=== PATIENT | female | born 1955 | race Caucasian/White ===

== ENCOUNTER 2018-04-06 10:52 | Emergency (ER) | payer OTHER ==
[~2018-04-06] VITALS: Ht 170.2 cm; Wt 56.7 kg
[2018-04-06 12:25] LABS: Albumin 2.9 g/dL (3.4-5.0); Calcium 8.8 mg/dL (8.5-10.1); Potassium 4.1 mmol/L (3.5-5.1)
[2018-04-06 12:30] LABS: Bilirubin, Total 0.6 mg/dL (0.2-1.0); Total Protein 6.6 g/dL (6.4-8.2)
[2018-04-06 13:06] LABS: Basophils # (auto) 0.1 uL; Basophils % (auto) 0.5 % (0.0-2.0); Eosinophils # (auto) 0.1 uL; Eosinophils % (auto) 0.6 % (0.0-7.0); Hematocrit 36.5 % (36.0-46.0); Lymphocytes # (auto) 2.2 uL; Lymphocytes % (auto) 13.9 % (10.0-50.0); Mean Corpuscular Hemoglobin 30.3 pg (28.0-32.0); Mean Corpuscular Hgb Conc. 32.8 g/dL (32.0-36.0); Mean Corpuscular Volume 92.5 fL (80.0-100.0); Monocytes # (auto) 1.9 uL; Monocytes % (auto) 11.9 % (0.0-12.0); Neutrophils # (auto) 11.5 uL; Neutrophils % (auto) 73.1 % (37.0-80.0); Platelet Count (auto) 277 10^3/uL (140-450); Red Blood Cells 3.95 10^6/uL (4.0-5.20); Red Cell Distribution Width 13.4 % (11.8-14.3); White Blood Cell 15.8 10^3/uL (4.4-10.8)
[2018-04-06] MEDS ORDERED: VANCOMYCIN 1GM/250ML 250 ML IV ONE (15:00)
[2018-04-06 17:05] LABS: Urine Bacteria NONE SEEN /hpf (None Seen); Urine Blood Negative /uL (Negative); Urine Specific Gravity 1.028 (1.001-1.035); Urine WBC 1 /hpf (0 - 5)
[2018-04-06 20:30] VITALS: BP 127/72
== END 2018-04-06 20:52 | disposition home or self-care (01) ==
LOC: ER 10:52 → EDBD 10:52 → ER 20:52
DX: L03.317 Cellulitis of buttock (principal); Z88.0 Allergy status to penicillin; Z91.040 Latex allergy status; Z91.09 Other allergy status, other than to drugs and biological substances
CPT/HCPCS: 36415; 51702; 71045; 72192; 80053; 81001; 83605; 85025; 87040; 87076; 87086; 96365; 96366; 99284; J3370

== ENCOUNTER 2020-10-20 14:27 | Inpatient (IN) | payer MEDICARE ==
[~2020-10-20] VITALS: Ht 167.6 cm; Wt 78.8 kg
[2020-10-20] MEDS: SODIUM CHLORIDE 0.9% 1,000 ML IV SCH (07:45)
[2020-10-20] MEDS ORDERED: SODIUM CHLORIDE 0.9% 1,000 ML IV ONE ×2 (15:15→18:45)
[2020-10-20 15:40] LABS: Basophils # (auto) 0 10 ^3/uL (0-0.2); Basophils % (auto) 0.2 % (0.0-2.0); Eosinophils # (auto) 0 10 ^3/uL (0-0.8); Hematocrit 38.2 % (36.0-46.0); Hemoglobin 12.6 g/dL (12.2-16.2); Lymphocytes % (auto) 8.3 % (10.0-50.0); Mean Corpuscular Hemoglobin 27.9 pg (28.0-32.0); Mean Corpuscular Hgb Conc. 32.9 g/dL (32.0-36.0); Mean Corpuscular Volume 84.7 fL (80.0-100.0); Monocytes % (auto) 8.5 % (0.0-12.0); Neutrophils # (auto) 19.6 10 ^3/uL (1.6-8.6); Red Blood Cells 4.51 10^6/uL (4.0-5.20); Red Cell Distribution Width 13.6 % (11.8-14.3); White Blood Cell 23.6 10^3/uL (4.4-10.8)
[2020-10-20] MEDS ORDERED: cefTRIAXone 1GM/50ML D5W 50 ML IV ONE (16:00)
[2020-10-20 16:12] LABS: Albumin 2.4 g/dL (3.4-5.0); Anion Gap 6 (5-15); Blood Urea Nitrogen 60 mg/dL (7-18); Calcium 10.1 mg/dL (8.5-10.1); Carbon Dioxide 29 mmol/L (21-32); Chloride 101 mmol/L (98-107); Glucose 126 mg/dL (74-106); Potassium 5.2 mmol/L (3.5-5.1); Sodium 136 mmol/L (136-145)
[2020-10-20 16:17] LABS: Alanine Aminotransferase 19 U/L (13-56); Alkaline Phosphatase 98 U/L (45-117); Aspartate Aminotransferase 28 U/L (15-37); BUN/Creatinine Ratio 36.6; Bilirubin, Total 0.3 mg/dL (0.2-1.0); GFR African American 41 mL/min; GFR Non-African American 34 mL/min; Total Protein 7.2 g/dL (6.4-8.2)
[2020-10-20] MEDS ORDERED: CLINDAMYCIN 600MG IV 50 ML IV ONE (18:00)
[2020-10-20] MEDS ORDERED: MORPHINE SULFATE INJECTION 2 MG/ML SYRG IV PRN (18:00)
[2020-10-20] MEDS ORDERED: NITROGLYCERIN 0.4 MG SL TAB SL PRN (18:00)
[2020-10-20] MEDS ORDERED: ACETAMINOPHEN 500 MG TAB PO PRN (18:15)
[2020-10-20] MEDS ORDERED: DEXTROSE (50%) 50ML SYRG IV PRN (18:15)
[2020-10-20] MEDS ORDERED: ONDANSETRON HCL 4 MG/2 ML VIAL IV PRN (18:15)
[2020-10-20] MEDS ORDERED: traMADol HCL 50 MG TAB PO PRN (18:15)
[2020-10-20] MEDS ORDERED: InsuLIN REG 1unit/0.01ml Soln (100units/ml) IV ONE (18:45)
[2020-10-20] MEDS ORDERED: DEXTROSE (50%) 50ML SYRG IV ONE (18:45)
[2020-10-20] MEDS ORDERED: FUROSEMIDE 20 MG/2 ML VIAL IV ONE (18:45)
[2020-10-20] MEDS ORDERED: SODIUM ZIRCONIUM CYCL 10 GM PAK PO ONE (18:45)
[2020-10-20 19:14] LABS: Urine Bacteria FEW /hpf (None Seen); Urine Blood 1+ /uL (Negative); Urine Specific Gravity 1.009 (1.001-1.035); Urine WBC 76 /hpf (0 - 5)
[2020-10-20] MEDS ORDERED: ERTAPENEM SOD INJ 1 GM in SODIUM CHL 0.9% 50 ML IV ONE (19:30)
[2020-10-20] MEDS: ACCU-CHEK COMFORT CURVE STRIP VI SCH (21:26)
[2020-10-21] MEDS: CLINDAMYCIN 600MG IV 50 ML IV SCH ×3 (01:42→17:49)
[2020-10-21] MEDS: ACCU-CHEK COMFORT CURVE STRIP VI SCH ×4 (06:23→21:50)
[2020-10-21] MEDS: SODIUM CHLORIDE 0.9% 1,000 ML IV SCH ×4 (07:00→19:06)
[2020-10-21 08:29] LABS: Basophils # (auto) 0 10 ^3/uL (0-0.2); Basophils % (auto) 0.3 % (0.0-2.0); Eosinophils # (auto) 0.3 10 ^3/uL (0-0.8); Eosinophils % (auto) 1.8 % (0.0-7.0); Hematocrit 34.4 % (36.0-46.0); Hemoglobin 11.4 g/dL (12.2-16.2); Lymphocytes # (auto) 2.6 10 ^3/uL (0.4-5.4); Lymphocytes % (auto) 18.5 % (10.0-50.0); Mean Corpuscular Hemoglobin 28.4 pg (28.0-32.0); Mean Corpuscular Hgb Conc. 33.2 g/dL (32.0-36.0); Mean Corpuscular Volume 85.5 fL (80.0-100.0); Monocytes # (auto) 1.6 10 ^3/uL (0-1.3); Monocytes % (auto) 11.4 % (0.0-12.0); Neutrophils # (auto) 9.6 10 ^3/uL (1.6-8.6); Red Blood Cells 4.02 10^6/uL (4.0-5.20); Red Cell Distribution Width 14.1 % (11.8-14.3); White Blood Cell 14.2 10^3/uL (4.4-10.8)
[2020-10-21 08:44] LABS: Albumin 2.2 g/dL (3.4-5.0); Calcium 9.4 mg/dL (8.5-10.1); Potassium 3.9 mmol/L (3.5-5.1)
[2020-10-21 08:46] LABS: BUN/Creatinine Ratio 41.3
[2020-10-21 08:59] LABS: Bilirubin, Total 0.2 mg/dL (0.2-1.0); Total Protein 6.8 g/dL (6.4-8.2)
[2020-10-21] MEDS ORDERED: ERTAPENEM SOD INJ 1 GM in SODIUM CHL 0.9% 50 ML IV SCH (10:00)
[2020-10-21] MEDS: ERTAPENEM SOD INJ 1 GM in SODIUM CHL 0.9% 50 ML IV SCH (21:56)
[2020-10-21] MEDS ORDERED: LORazepam 2MG/ML-1ML VIAL IV PRN (22:15)
[2020-10-22] MEDS: CLINDAMYCIN 600MG IV 50 ML IV SCH ×3 (01:40→17:54)
[2020-10-22] MEDS: ACCU-CHEK COMFORT CURVE STRIP VI SCH (06:40)
[2020-10-22 12:34] LABS: Calcium 9.2 mg/dL (8.5-10.1); Potassium 3.5 mmol/L (3.5-5.1)
[2020-10-22] MEDS ORDERED: LORazepam 2MG/ML-1ML VIAL IV ONE (13:30)
[2020-10-22] MEDS ORDERED: MULT-1056 PO (14:16)
[2020-10-22] MEDS ORDERED: SENN-199 PO (14:16)
[2020-10-22] MEDS ORDERED: LEVO125T7 PO (14:16)
[2020-10-22] MEDS ORDERED: BACL20TA PO (14:16)
[2020-10-22] MEDS ORDERED: CHOL20007 PO (14:16)
[2020-10-22] MEDS ORDERED: IBAN1TAB3 PO (14:16)
[2020-10-22] MEDS ORDERED: CHOL100029 PO (14:26)
[2020-10-22] MEDS: SODIUM CHLORIDE 0.9% 1,000 ML IV SCH (18:42)
[2020-10-22 22:00] VITALS: BP 155/83
[2020-10-23] MEDS: ERTAPENEM SOD INJ 1 GM in SODIUM CHL 0.9% 50 ML IV SCH ×2 (01:27→21:54)
[2020-10-23] MEDS: CLINDAMYCIN 600MG IV 50 ML IV SCH ×3 (02:06→17:58)
[2020-10-23 03:14] VITALS: BP 155/83
[2020-10-23 05:30] VITALS: BP 131/77
[2020-10-23] MEDS: SODIUM CHLORIDE 0.9% 1,000 ML IV SCH ×2 (06:15→16:39)
[2020-10-23 09:00] VITALS: BP 145/74
[2020-10-23 13:00] VITALS: BP 159/61
[2020-10-23] MEDS ORDERED: LORazepam 0.5 MG TAB PO PRN (13:15)
[2020-10-23] MEDS: BACLOFEN 10 MG TAB PO SCH ×2 (14:57→21:54)
[2020-10-23 17:00] VITALS: BP 147/68
[2020-10-23 22:04] VITALS: BP 128/77
[2020-10-24] MEDS: SODIUM CHLORIDE 0.9% 1,000 ML IV SCH ×3 (02:15→22:18)
[2020-10-24] MEDS: CLINDAMYCIN 600MG IV 50 ML IV SCH ×3 (02:23→17:50)
[2020-10-24 05:00] VITALS: BP 135/71
[2020-10-24] MEDS: BACLOFEN 10 MG TAB PO SCH ×3 (06:00→22:13)
[2020-10-24 09:00] VITALS: BP 107/58
[2020-10-24 12:48] VITALS: BP 133/73
[2020-10-24] MEDS: ERTAPENEM SOD INJ 1 GM in SODIUM CHL 0.9% 50 ML IV SCH (15:47)
[2020-10-24 16:21] VITALS: BP 152/90
[2020-10-24 17:00] VITALS: BP 124/78
[2020-10-24 22:00] VITALS: BP 124/77
[2020-10-25] MEDS: CLINDAMYCIN 600MG IV 50 ML IV SCH ×2 (02:18→10:26)
[2020-10-25 05:00] VITALS: BP 108/53
[2020-10-25] MEDS: BACLOFEN 10 MG TAB PO SCH ×2 (06:24→14:00)
[2020-10-25 09:00] VITALS: BP 115/71
[2020-10-25] MEDS: SODIUM CHLORIDE 0.9% 1,000 ML IV SCH (13:00)
== END 2020-10-25 15:30 | disposition home health service (06) | DRG 871 ==
LOC: EDBD 14:27 → ER 14:27 → EDUNIT# 14:27 → TELE 18:00 → TELE-CENTR 10-22 21:32
PROVIDERS: ADMIT Internal Medicine; ATTEND Family Medicine
PROC: 05HF33Z Insertion of Infusion Device into Left Cephalic Vein, Percutaneous Approach (ICD-10-PCS; principal; 2020-10-20)
PROC: B54NZZA Ultrasonography of Left Upper Extremity Veins, Guidance (ICD-10-PCS; 2020-10-20)
DX: A41.81 Sepsis due to Enterococcus (principal); L89.313 Pressure ulcer of right buttock, stage 3; L89.154 Pressure ulcer of sacral region, stage 4; E46 Unspecified protein-calorie malnutrition; N17.9 Acute kidney failure, unspecified; G82.20 Paraplegia, unspecified; M86.8X8 Other osteomyelitis, other site; N39.0 Urinary tract infection, site not specified; R65.20 Severe sepsis without septic shock; E87.5 Hyperkalemia; Z20.822 Contact with and (suspected) exposure to COVID-19; R73.9 Hyperglycemia, unspecified; E05.90 Thyrotoxicosis, unspecified without thyrotoxic crisis or storm; E86.0 Dehydration; E66.9 Obesity, unspecified; G35 Multiple sclerosis; Z74.01 Bed confinement status; R32 Unspecified urinary incontinence; Z93.3 Colostomy status; Z68.29 Body mass index [BMI] 29.0-29.9, adult; Z80.7 Family history of other malignant neoplasms of lymphoid, hematopoietic and related tissues; Z88.0 Allergy status to penicillin; Z88.2 Allergy status to sulfonamides; Z88.6 Allergy status to analgesic agent; Z91.040 Latex allergy status; R00.8 Other abnormalities of heart beat
CPT/HCPCS: 36415; 70450; 70551; 71045; 74176; 76536; 80048; 80053; 80320; 81001; 82962; 83036; 83605; 83735; 83880; 84443; 84484; 85025; 87040; 87086; 87088; 87186; 87205; 87426; 93005; 93306; 95819; 96365; 96367; G0378; J0696; J1335; J1815; J3490

== ENCOUNTER 2021-09-22 19:55 | Inpatient (IN) | payer MEDICARE ==
[~2021-09-22] VITALS: Ht 167.6 cm; Wt 80.9 kg
[~2021-09-22 19:55] MED LIST: BACL20TA PO; CHOL100029 PO; FER325T PO; IBAN1TAB2 PO; IBAN1TAB3 PO; LEV100T PO; LEVO125T7 PO; MULT-1056 PO; SENN-199 PO
[2021-09-22 21:47] LABS: Urine Bacteria FEW /hpf (None Seen); Urine Blood Negative /uL (Negative); Urine Budding Yeast OCCASIONAL /hpf (None Seen); Urine WBC 257 /hpf (0 - 5)
[2021-09-22] MEDS ORDERED: MEROPENEM 1GM IVPB 100 ML IV STA (23:22)
[2021-09-23 00:02] LABS: Basophils # (auto) 0 10 ^3/uL (0-0.2); Basophils % (auto) 0.4 % (0.0-2.0); Eosinophils # (auto) 0.1 10 ^3/uL (0-0.8); Eosinophils % (auto) 0.7 % (0.0-7.0); Hematocrit 39.2 % (36.0-46.0); Hemoglobin 12.8 g/dL (12.2-16.2); Lymphocytes # (auto) 2.7 10 ^3/uL (0.4-5.4); Mean Corpuscular Hgb Conc. 32.6 g/dL (32.0-36.0); Monocytes # (auto) 0.9 10 ^3/uL (0-1.3); Monocytes % (auto) 7.9 % (0.0-12.0); Neutrophils # (auto) 7.6 10 ^3/uL (1.6-8.6); Red Cell Distribution Width 13.8 % (11.8-14.3); White Blood Cell 11.3 10^3/uL (4.4-10.8)
[2021-09-23 00:17] LABS: Albumin 3.2 g/dL (3.4-5.0); BUN/Creatinine Ratio 47.8; Calcium 9.1 mg/dL (8.5-10.1); Potassium 3.8 mmol/L (3.5-5.1)
[2021-09-23 00:20] LABS: Bilirubin, Total 0.2 mg/dL (0.2-1.0); Total Protein 7.2 g/dL (6.4-8.2)
[2021-09-23] MEDS ORDERED: TEMAZEPAM 15 MG CAP PO PRN (03:30)
[2021-09-23] MEDS ORDERED: ONDANSETRON HCL 4 MG/2 ML VIAL IV PRN (03:30)
[2021-09-23] MEDS ORDERED: ACETAMINOPHEN 325 MG TAB PO PRN (03:30)
[2021-09-23] MEDS: LEVOTHYROXINE SODIUM 50 MCG TAB PO SCH (07:07)
[2021-09-23] MEDS ORDERED: PATIENTS OWN MEDICATION (ertapenem 1 GRAMS) IV SCH (10:00)
[2021-09-23] MEDS: ERTAPENEM SOD INJ 1 GM in SODIUM CHL 0.9% 50 ML IV SCH (10:09)
[2021-09-23] MEDS: ENOXAPARIN SOD 40 MG/0.4 ML SYRINGE SC SCH (10:09)
[2021-09-23] MEDS: PANTOPRAZOLE 40 MG TAB PO SCH (10:09)
[2021-09-23] MEDS: DOCUSATE SOD 100 MG CAP PO SCH (21:42)
[2021-09-23 22:00] VITALS: BP 137/69
[2021-09-23 22:05] VITALS: BP 122/48
[2021-09-24 05:00] VITALS: BP 140/77
[2021-09-24 05:14] LABS: Basophils # (auto) 0 10 ^3/uL (0-0.2); Basophils % (auto) 0.4 % (0.0-2.0); Eosinophils # (auto) 0 10 ^3/uL (0-0.8); Eosinophils % (auto) 0.2 % (0.0-7.0); Hematocrit 36.2 % (36.0-46.0); Hemoglobin 11.9 g/dL (12.2-16.2); Lymphocytes # (auto) 1.7 10 ^3/uL (0.4-5.4); Lymphocytes % (auto) 17.7 % (10.0-50.0); Mean Corpuscular Hemoglobin 28.8 pg (28.0-32.0); Mean Corpuscular Hgb Conc. 32.8 g/dL (32.0-36.0); Monocytes # (auto) 0.6 10 ^3/uL (0-1.3); Monocytes % (auto) 5.9 % (0.0-12.0); Neutrophils # (auto) 7.3 10 ^3/uL (1.6-8.6); Neutrophils % (auto) 75.8 % (37.0-80.0); Red Blood Cells 4.11 10^6/uL (4.0-5.20); Red Cell Distribution Width 13.6 % (11.8-14.3); White Blood Cell 9.7 10^3/uL (4.4-10.8)
[2021-09-24 05:27] LABS: Potassium 3.9 mmol/L (3.5-5.1)
[2021-09-24 05:33] LABS: Albumin 3.1 g/dL (3.4-5.0); BUN/Creatinine Ratio 35.6; Bilirubin, Total 0.3 mg/dL (0.2-1.0); Calcium 9.4 mg/dL (8.5-10.1)
[2021-09-24 05:41] LABS: Free T4 (Free Thyroxine) 1.35 ng/dL (0.89-1.76)
[2021-09-24 05:42] LABS: Folate (Folic Acid) > 24.00 ng/mL (5.38-24)
[2021-09-24] MEDS: LEVOTHYROXINE SODIUM 50 MCG TAB PO SCH (06:04)
[2021-09-24 09:00] VITALS: BP 123/52
[2021-09-24] MEDS: DOCUSATE SOD 100 MG CAP PO SCH ×2 (10:12→22:16)
[2021-09-24] MEDS: ERTAPENEM SOD INJ 1 GM in SODIUM CHL 0.9% 50 ML IV SCH (10:12)
[2021-09-24] MEDS: ENOXAPARIN SOD 40 MG/0.4 ML SYRINGE SC SCH (10:12)
[2021-09-24] MEDS: PANTOPRAZOLE 40 MG TAB PO SCH (10:12)
[2021-09-24] MEDS: diphenhdrAMINE HCL 25 MG CAP PO PRN ×2 (10:12→22:16)
[2021-09-24] MEDS: BACLOFEN 10 MG TAB PO PRN ×2 (10:20→18:43)
[2021-09-24 13:00] VITALS: BP 119/68
[2021-09-24] MEDS ORDERED: BACLOFEN 20 MG PO SCH (14:00)
[2021-09-24 16:57] VITALS: BP 118/64
[2021-09-24 22:00] VITALS: BP 120/69
[2021-09-25 05:00] VITALS: BP 111/67
[2021-09-25 09:00] VITALS: BP 125/72
[2021-09-25] MEDS: DOCUSATE SOD 100 MG CAP PO SCH ×2 (09:53→22:23)
[2021-09-25] MEDS: ENOXAPARIN SOD 40 MG/0.4 ML SYRINGE SC SCH (09:53)
[2021-09-25] MEDS: PANTOPRAZOLE 40 MG TAB PO SCH (09:53)
[2021-09-25] MEDS: BACLOFEN 10 MG TAB PO PRN ×2 (09:53→22:23)
[2021-09-25] MEDS: diphenhdrAMINE HCL 25 MG CAP PO PRN ×2 (09:53→22:23)
[2021-09-25] MEDS: ERTAPENEM SOD INJ 1 GM in SODIUM CHL 0.9% 50 ML IV SCH (09:54)
[2021-09-25 13:00] VITALS: BP 122/70
[2021-09-25 16:57] VITALS: BP 125/66
[2021-09-25 22:00] VITALS: BP 124/63
[2021-09-26 05:00] VITALS: BP 14/53
[2021-09-26] MEDS ORDERED: NITR1CAP36 PO (07:05)
[2021-09-26 09:00] VITALS: BP 118/75
[2021-09-26] MEDS: ERTAPENEM SOD INJ 1 GM in SODIUM CHL 0.9% 50 ML IV SCH (09:07)
[2021-09-26] MEDS: DOCUSATE SOD 100 MG CAP PO SCH (09:07)
[2021-09-26] MEDS: ENOXAPARIN SOD 40 MG/0.4 ML SYRINGE SC SCH (09:08)
[2021-09-26] MEDS: diphenhdrAMINE HCL 25 MG CAP PO PRN (09:08)
[2021-09-26] MEDS: BACLOFEN 10 MG TAB PO PRN (09:09)
[2021-09-26 13:00] VITALS: BP 116/70
[2021-09-26 17:00] VITALS: BP 135/73
== END 2021-09-26 18:00 | disposition home health service (06) | DRG 699 ==
LOC: EDBD 19:55 → ER 19:55 → OVERFLOW 09-23 03:26 → EAST 09-23 20:35
PROVIDERS: ADMIT Nurse Practitioner; ATTEND Internal Medicine
DX: T83.098A Other mechanical complication of other urinary catheter, initial encounter (principal); E44.0 Moderate protein-calorie malnutrition; N39.0 Urinary tract infection, site not specified; E03.9 Hypothyroidism, unspecified; Z20.822 Contact with and (suspected) exposure to COVID-19; Y83.8 Other surgical procedures as the cause of abnormal reaction of the patient, or of later complication, without mention of misadventure at the time of the procedure; G35 Multiple sclerosis; Z74.01 Bed confinement status; Z93.3 Colostomy status; Z88.0 Allergy status to penicillin; Z88.2 Allergy status to sulfonamides; Z88.8 Allergy status to other drugs, medicaments and biological substances; Z91.040 Latex allergy status; Z68.28 Body mass index [BMI] 28.0-28.9, adult; Y92.89 Other specified places as the place of occurrence of the external cause
CPT/HCPCS: 36415; 80053; 81001; 82607; 82746; 84439; 84443; 85025; 87086; 96365; 96372; G0378; J1335; J2185; J2405